=== PATIENT | female | born 1935 | race Caucasian/White ===

== ENCOUNTER 2021-05-16 21:27 | Emergency (ER) | payer MEDICARE, OTHER ==
[2021-05-16 22:55] LABS: Bilirubin Neg (Negative); Blood, Urine 150 (Negative); Clarity Slightly Cloudy (Clear); Glucose, Urine (Dipstick) Normal (Negative); Ketone, Urine Negative (Negative); Leukocyte 100 (Negative); Nitrite Negative (Negative); Protein, Urine (Dipstick) 30 mg/dl (Neg-Trace); Urobilinogen Normal mg/dL (Less than 2); pH, Urine 6.5 (5.0-9.0)
[2021-05-16 23:03] LABS: Bacteria/HPF 4+ HPF (None Seen); Squamous Epithelial None Seen HPF (0-3); WBC/HPF 21-50 HPF (0-3)
[2021-05-16] MEDS ORDERED: cefTRIAXone\\ROCEPHIN 1 GM VIAL ONE (23:31)
[2021-05-16 23:33] LABS: Hemoglobin 12.2 g/dL (12.0-15.5); Mean Corpuscular HGB CONC 30.7 g/dL (32.0-36.0); Mean Corpuscular Hemoglobin 26.5 pg (27.0-33.0); Mean Corpuscular Volume 86.3 fl (81.6-98.3); Mean Platelet Volume 9.8 fl (7.4-10.4); Platelet Count 228 10x3/uL (150-450); RBC Distribution Width 17.1 % (11.5-14.5); White Blood Cell (WBC) Count 4.1 10x3/uL (3.5-10.5)
[2021-05-16 23:36] LABS: MDiff Complete? YES
[2021-05-16 23:37] LABS: ALT (SGPT) 13 U/L (8-55); AST (SGOT) 24 U/L (5-34); Albumin 3.8 g/dL (3.4-4.8); Alkaline Phosphatase 76 U/L (40-110); Anion Gap 16 mmol/L (10-20); BUN (Urea Nitrogen) 17 mg/dL (9.8-20.1); Bilirubin, Total 0.3 mg/dL (0.2-1.2); Calc. Creatinine Clearance 0 mL/min (70-130); Calcium 9.4 mg/dL (7.8-10.44); Carbon Dioxide 24 mmol/L (23-31); Chloride 111 mmol/L (98-107); Globulin 4.2 g/dL (2.4-3.5); Glucose 139 mg/dL (83-110); Platelet Morphology Comment Appears Adequate; RBC Morphology Normal; Sodium 147 mmol/L (136-145)
[2021-05-16 23:41] LABS: Lymphocytes 19 % (21-51); Monocytes 17 % (0-10); Neutrophil 63 % (42-75)
[2021-05-17 00:10] LABS: SARS-CoV-2 NAA Rapid Test DETECTED (NotDetected)
== END 2021-05-17 00:53 | disposition home or self-care (01) ==
LOC: CSHERS 21:27
DX: U07.1 COVID-19 (principal); N39.0 Urinary tract infection, site not specified; R41.82 Altered mental status, unspecified
CPT/HCPCS: 51701; 70450; 71045; 80053; 84484; 85025; 87040; 87077; 87086; 87186; 93005; 96365; 99285; U0002; 36415; 81003; 81015; J0696

== ENCOUNTER 2021-05-26 08:45 | Inpatient (IN) | payer MEDICARE, OTHER ==
[2021-05-26 09:28] LABS: #Monocytes 0.7 10x3/uL (0.0-1.1); #Neutrophils 6.6 10x3/uL (1.5-8.4); %Basophils 0.2 % (0.0-2.0); %Eosinophils 0.1 % (0.0-6.0); %Lymphocytes 15.7 % (18.0-47.0); %Monocytes 7.9 % (0.0-10.0); %Neutrophils 75.5 % (40.0-75.0); Hemoglobin 11.9 g/dL (12.0-15.5); Mean Corpuscular HGB CONC 29.2 g/dL (32.0-36.0); Mean Corpuscular Hemoglobin 26.2 pg (27.0-33.0); Mean Corpuscular Volume 89.5 fl (81.6-98.3); Mean Platelet Volume 12.7 fl (7.4-10.4); Platelet Count 168 10x3/uL (150-450); RBC Distribution Width 17.4 % (11.5-14.5); Red Blood Cell (RBC) Count 4.55 10x6/uL (3.90-5.03); White Blood Cell (WBC) Count 8.8 10x3/uL (3.5-10.5)
[2021-05-26 09:50] LABS: Ovalocytes SLIGHT = 2-5 cells (100X) (0-1/hpf); Platelet Morphology Comment Appears Adequate
[2021-05-26 09:58] LABS: ALT (SGPT) 36 U/L (8-55); AST (SGOT) 51 U/L (5-34); Albumin 2.9 g/dL (3.4-4.8); Alkaline Phosphatase 77 U/L (40-110); Anion Gap 19 mmol/L (10-20); BUN (Urea Nitrogen) 48 mg/dL (9.8-20.1); Bilirubin, Total 0.9 mg/dL (0.2-1.2); Calc. Creatinine Clearance 0 mL/min (70-130); Carbon Dioxide 18 mmol/L (23-31); Chloride 128 mmol/L (98-107); Globulin 3.8 g/dL (2.4-3.5); Glucose 97 mg/dL (83-110); Potassium 3.3 mmol/L (3.5-5.1); Protein, Total 6.7 g/dL (5.8-8.1); Sodium 162 mmol/L (136-145)
[2021-05-26] MEDS ORDERED: cefTRIAXone\\ROCEPHIN 2 GM VIAL ONE (10:09)
[2021-05-26] MEDS ORDERED: Azithromycin 500 MG VIAL ONE (10:09)
[2021-05-26 10:11] LABS: Bilirubin 1+ (Negative); Blood, Urine 150 (Negative); Clarity Slightly Cloudy (Clear); Glucose, Urine (Dipstick) Normal (Negative); Ketone, Urine 5 mg/dL (Negative); Leukocyte 100 (Negative); Nitrite Negative (Negative); Protein, Urine (Dipstick) 30 mg/dl (Neg-Trace)
[2021-05-26 10:39] LABS: Bacteria/HPF 1+ HPF (None Seen); RBC/HPF 21-50 HPF (0-3); WBC/HPF 21-50 HPF (0-3)
[2021-05-26 10:40] LABS: White Blood Cell Cast 0-3 LPF (None Seen)
[2021-05-26 10:47] LABS: Actual Bicarbonate (HCO3v) 17 mEq/L (22-28); Base Excess -5.5 mEq/L (-2.0 to +3.0); Calcium, Ionized (venous) 0.93 mmol/L (1.16-1.32); Chloride (VBG) 128 mmol/L (98-106); Hemoglobin (Hb) 13.4 g/dL (11.7-16.1); Potassium (VBG) 3.62 mmol/L (3.70-5.30); Puncture Site Other Site; RapidComm Collect By LAB; Sodium 159.5 mmol/L (133-146); pH (venous) 7.43 (7.32-7.43)
[2021-05-26 12:32] LABS: Lactic Acid 2.6 mmol/L (0.5-2.2)
[2021-05-26] MEDS ORDERED: Acetaminophen 325 MG TAB PO PRN (15:27)
[2021-05-26] MEDS ORDERED: Ondansetron ODT 4 MG TAB PO PRN (15:27)
[2021-05-26] MEDS ORDERED: Ondansetron PF 4 MG/2 ML Vial IVP PRN (15:27)
[2021-05-26] MEDS ORDERED: Acetaminophen 650 MG Suppository PR PRN (15:27)
[2021-05-26 19:23] VITALS: BMI 17.6
[2021-05-26] MEDS: Heparin 5,000 UNITS/ML VIAL SC SCH (22:12)
[2021-05-26] MEDS: D5 1/2 NS w/20 mEq KCL 1,000 ML IV SCH (22:12)
[2021-05-26] MEDS: Aspirin 81 mg Enteric Coated Tablet PO SCH ×2 (22:13→23:20)
[2021-05-26] MEDS: Senokot S 8.6-50 MG TAB PO SCH ×2 (22:13→23:20)
[2021-05-27] MEDS: D5 1/2 NS w/20 mEq KCL 1,000 ML IV SCH (03:47)
[2021-05-27 06:24] LABS: #Monocytes 0.5 10x3/uL (0.0-1.1); #Neutrophils 5.8 10x3/uL (1.5-8.4); %Basophils 0.3 % (0.0-2.0); %Eosinophils 0.5 % (0.0-6.0); %Lymphocytes 17.3 % (18.0-47.0); %Monocytes 6.8 % (0.0-10.0); %Neutrophils 74.3 % (40.0-75.0); Hemoglobin 11.4 g/dL (12.0-15.5); Mean Corpuscular HGB CONC 28.9 g/dL (32.0-36.0); Mean Corpuscular Hemoglobin 25.9 pg (27.0-33.0); Mean Corpuscular Volume 89.6 fl (81.6-98.3); Mean Platelet Volume 12.7 fl (7.4-10.4); Platelet Count 163 10x3/uL (150-450); RBC Distribution Width 17.3 % (11.5-14.5); Red Blood Cell (RBC) Count 4.41 10x6/uL (3.90-5.03); White Blood Cell (WBC) Count 7.8 10x3/uL (3.5-10.5)
[2021-05-27] MEDS ORDERED: D5 1/2 NS w/20 mEq KCL 1,000 ML ONE (08:03)
[2021-05-27 08:16] LABS: Ovalocytes SLIGHT = 2-5 cells (100X) (0-1/hpf)
[2021-05-27 08:17] LABS: Platelet Morphology Comment Appears Adequate
[2021-05-27 09:00] LABS: Anion Gap 12 mmol/L (10-20); BUN (Urea Nitrogen) 29 mg/dL (9.8-20.1); Calc. Creatinine Clearance 36 mL/min (70-130); Calcium 8.2 mg/dL (7.8-10.44); Carbon Dioxide 22 mmol/L (23-31); Chloride 133 mmol/L (98-107); Glucose 90 mg/dL (83-110); Potassium 3.1 mmol/L (3.5-5.1); Sodium 164 mmol/L (136-145)
[2021-05-27] MEDS ORDERED: Dextrose 5% in Water 1,000 ML IV SCH ×2 (09:00→09:15)
[2021-05-27] MEDS ORDERED: Potassium Chloride 10 MEQ in Premix Bag 1 BAG IVPB SCH (09:30)
[2021-05-27] MEDS: Lactated Ringer's 1,000 ML IV SCH ×2 (10:58→21:01)
[2021-05-27] MEDS: cefTRIAXone\\ROCEPHIN 1 GM in Sodium Chloride 0.9% 100 ML IVPB SCH (10:58)
[2021-05-27] MEDS: Heparin 5,000 UNITS/ML VIAL SC SCH ×2 (10:59→21:01)
[2021-05-27] MEDS: Senokot S 8.6-50 MG TAB PO SCH ×2 (11:50→21:04)
[2021-05-27] MEDS: Aspirin 81 mg Enteric Coated Tablet PO SCH ×2 (11:50→21:03)
[2021-05-27] MEDS: Polyethylene Glycol 3350 17 GM Packet PO SCH (11:50)
[2021-05-27 15:56] LABS: Sodium 160 mmol/L (136-145)
[2021-05-27 20:35] LABS: Anion Gap 17 mmol/L (10-20); BUN (Urea Nitrogen) 21 mg/dL (9.8-20.1); Calc. Creatinine Clearance 37 mL/min (70-130); Calcium 7.7 mg/dL (7.8-10.44); Carbon Dioxide 13 mmol/L (23-31); Glucose 109 mg/dL (83-110); Potassium 3.5 mmol/L (3.5-5.1); Sodium 155 mmol/L (136-145)
[2021-05-27 20:38] LABS: Chloride 129 mmol/L (98-107)
[2021-05-27] MEDS: Dextrose 5% in Water 1,000 ML IV SCH (21:02)
[2021-05-28] MEDS ORDERED: Lactated Ringer's 1,000 ML ONE (04:56)
[2021-05-28] MEDS: Dextrose 5% in Water 1,000 ML IV SCH ×4 (04:57→21:26)
[2021-05-28] MEDS: Lactated Ringer's 1,000 ML IV SCH ×2 (04:58→14:04)
[2021-05-28 05:32] LABS: Anion Gap 12 mmol/L (10-20); BUN (Urea Nitrogen) 16 mg/dL (9.8-20.1); Calc. Creatinine Clearance 41 mL/min (70-130); Calcium 7.5 mg/dL (7.8-10.44); Carbon Dioxide 19 mmol/L (23-31); Chloride 124 mmol/L (98-107); Glucose 80 mg/dL (83-110); Sodium 152 mmol/L (136-145)
[2021-05-28 05:34] LABS: Potassium 2.8 mmol/L (3.5-5.1)
[2021-05-28] MEDS: Potassium Chloride 20 MEQ in Premix Bag 1 BAG IVPB SCH ×3 (05:57→10:35)
[2021-05-28 07:09] LABS: Magnesium 1.9 mg/dL (1.6-2.6)
[2021-05-28 07:24] LABS: Phosphorus 1.6 mg/dL (2.3-4.7)
[2021-05-28] MEDS: Aspirin 81 mg Enteric Coated Tablet PO SCH ×2 (07:48→20:46)
[2021-05-28] MEDS: Polyethylene Glycol 3350 17 GM Packet PO SCH (07:48)
[2021-05-28] MEDS: Heparin 5,000 UNITS/ML VIAL SC SCH ×2 (07:49→20:42)
[2021-05-28] MEDS: Senokot S 8.6-50 MG TAB PO SCH ×2 (07:49→20:46)
[2021-05-28 08:58] LABS: #Eosinphils 0.1 10x3/uL (0.0-0.5); #Monocytes 0.5 10x3/uL (0.0-1.1); #Neutrophils 4.2 10x3/uL (1.5-8.4); %Basophils 0.3 % (0.0-2.0); %Eosinophils 1.9 % (0.0-6.0); %Lymphocytes 23.5 % (18.0-47.0); %Monocytes 7.4 % (0.0-10.0); %Neutrophils 66.1 % (40.0-75.0); Hemoglobin 9.9 g/dL (12.0-15.5); Mean Corpuscular HGB CONC 29.6 g/dL (32.0-36.0); Mean Corpuscular Hemoglobin 26.1 pg (27.0-33.0); Mean Corpuscular Volume 88.2 fl (81.6-98.3); Mean Platelet Volume 12.6 fl (7.4-10.4); Platelet Count 161 10x3/uL (150-450); RBC Distribution Width 17.2 % (11.5-14.5); White Blood Cell (WBC) Count 6.4 10x3/uL (3.5-10.5)
[2021-05-28] MEDS: cefTRIAXone\\ROCEPHIN 1 GM in Sodium Chloride 0.9% 100 ML IVPB SCH (10:35)
[2021-05-28] MEDS ORDERED: Magnesium 2 GM/50 ML 2 GM in Sodium Chloride 0.9% 100 ML IVPB SCH (13:45)
[2021-05-28] MEDS ORDERED: Potassium Phosphate 15 MMOL in Sodium Chloride 0.9% 250 ML 250 ML IVPB SCH (13:45)
[2021-05-28 15:30] LABS: Potassium 3.9 mmol/L (3.5-5.1)
[2021-05-29 04:58] LABS: #Eosinphils 0.2 10x3/uL (0.0-0.5); #Monocytes 0.5 10x3/uL (0.0-1.1); #Neutrophils 4.1 10x3/uL (1.5-8.4); %Basophils 0.2 % (0.0-2.0); %Eosinophils 2.6 % (0.0-6.0); %Lymphocytes 25.7 % (18.0-47.0); %Monocytes 7.5 % (0.0-10.0); %Neutrophils 62.6 % (40.0-75.0); Hemoglobin 10.2 g/dL (12.0-15.5); Mean Corpuscular HGB CONC 31.7 g/dL (32.0-36.0); Mean Corpuscular Volume 85.2 fl (81.6-98.3); Mean Platelet Volume 12.6 fl (7.4-10.4); Platelet Count 155 10x3/uL (150-450); RBC Distribution Width 16.7 % (11.5-14.5); Red Blood Cell (RBC) Count 3.78 10x6/uL (3.90-5.03); White Blood Cell (WBC) Count 6.6 10x3/uL (3.5-10.5)
[2021-05-29 04:59] LABS: Anion Gap 11 mmol/L (10-20); BUN (Urea Nitrogen) 8 mg/dL (9.8-20.1); Calc. Creatinine Clearance 45 mL/min (70-130); Calcium 7.2 mg/dL (7.8-10.44); Carbon Dioxide 19 mmol/L (23-31); Chloride 116 mmol/L (98-107); Glucose 103 mg/dL (83-110); Potassium 3.6 mmol/L (3.5-5.1); Sodium 142 mmol/L (136-145)
[2021-05-29] MEDS: Dextrose 5% in Water 1,000 ML IV SCH (05:07)
[2021-05-29] MEDS: Lactated Ringer's 1,000 ML IV SCH (06:33)
[2021-05-29] MEDS: Aspirin 81 mg Enteric Coated Tablet PO SCH ×2 (06:53→20:53)
[2021-05-29] MEDS: Polyethylene Glycol 3350 17 GM Packet PO SCH (06:53)
[2021-05-29] MEDS: Senokot S 8.6-50 MG TAB PO SCH ×2 (06:53→20:53)
[2021-05-29] MEDS: Heparin 5,000 UNITS/ML VIAL SC SCH ×2 (07:15→20:50)
[2021-05-29 07:21] LABS: Phosphorus 2.2 mg/dL (2.3-4.7)
[2021-05-29] MEDS: cefTRIAXone\\ROCEPHIN 1 GM in Sodium Chloride 0.9% 100 ML IVPB SCH (09:06)
[2021-05-29] MEDS ORDERED: Dextrose 5%-Lactated Ringers 1,000 ML IV SCH (11:30)
[2021-05-30 06:18] LABS: #Eosinphils 0.2 10x3/uL (0.0-0.5); #Monocytes 0.8 10x3/uL (0.0-1.1); #Neutrophils 3.8 10x3/uL (1.5-8.4); %Basophils 0.5 % (0.0-2.0); %Eosinophils 2.7 % (0.0-6.0); %Lymphocytes 26.9 % (18.0-47.0); %Monocytes 11.6 % (0.0-10.0); %Neutrophils 57.1 % (40.0-75.0); Hemoglobin 10.4 g/dL (12.0-15.5); Mean Corpuscular HGB CONC 30.6 g/dL (32.0-36.0); Mean Corpuscular Hemoglobin 26.3 pg (27.0-33.0); Mean Corpuscular Volume 86.1 fl (81.6-98.3); Mean Platelet Volume 12.1 fl (7.4-10.4); Platelet Count 170 10x3/uL (150-450); RBC Distribution Width 16.5 % (11.5-14.5); Red Blood Cell (RBC) Count 3.95 10x6/uL (3.90-5.03); White Blood Cell (WBC) Count 6.6 10x3/uL (3.5-10.5)
[2021-05-30 06:31] LABS: Anion Gap 11 mmol/L (10-20); BUN (Urea Nitrogen) 5 mg/dL (9.8-20.1); Calc. Creatinine Clearance 44 mL/min (70-130); Calcium 7.5 mg/dL (7.8-10.44); Carbon Dioxide 19 mmol/L (23-31); Chloride 116 mmol/L (98-107); Glucose 77 mg/dL (83-110); Potassium 3.6 mmol/L (3.5-5.1); Sodium 142 mmol/L (136-145)
[2021-05-30] MEDS: Aspirin 81 mg Enteric Coated Tablet PO SCH (09:50)
[2021-05-30] MEDS: Polyethylene Glycol 3350 17 GM Packet PO SCH (09:50)
[2021-05-30] MEDS: Senokot S 8.6-50 MG TAB PO SCH (09:50)
[2021-05-30] MEDS: Heparin 5,000 UNITS/ML VIAL SC SCH (09:55)
[2021-05-30 11:26] VITALS: BP 113/38; TEMP 98.2
== END 2021-05-30 16:25 | DRG 871 ==
LOC: CSHERS 08:45 → CSHTELE 18:56
PROVIDERS: ADMIT Hospitalist; ATTEND Family Medicine
PROC: 8E0ZXY6 Isolation (ICD-10-PCS; principal; 2021-05-26)
DX: A41.9 Sepsis, unspecified organism (principal); U07.1 COVID-19; G93.41 Metabolic encephalopathy; N30.00 Acute cystitis without hematuria; N17.9 Acute kidney failure, unspecified; E87.0 Hyperosmolality and hypernatremia; E86.0 Dehydration; E87.6 Hypokalemia; Z66 Do not resuscitate; R64 Cachexia; Z51.5 Encounter for palliative care; E87.1 Hypo-osmolality and hyponatremia; Z68.1 Body mass index [BMI] 19.9 or less, adult; G30.9 Alzheimer's disease, unspecified; R65.20 Severe sepsis without septic shock; F02.80 Dementia in other diseases classified elsewhere, unspecified severity, without behavioral disturbance, psychotic disturbance, mood disturbance, and anxiety; Z98.890 Other specified postprocedural states; Z88.5 Allergy status to narcotic agent; Z79.899 Other long term (current) drug therapy; Z79.82 Long term (current) use of aspirin
CPT/HCPCS: 36415; 51701; 71045; 80048; 80053; 81003; 81015; 82805; 83605; 83735; 84100; 85025; 87040; 87086; 93005; 93010; 94760; 96365; 96367; J0456; J0696; J1644; J3475; J3480; J3490; J7050; J7070; J7120